=== PATIENT | male | born 1935 | race Caucasian/White ===

== ENCOUNTER 2016-11-06 11:38 | Emergency (ER) | payer MEDICARE, BC ==
[~2016-11-06 11:38] MED LIST: ASA5GR PO; ASABAYER PO; ATEN25 PO; CELEXA10 PO; CRESTOR20 MG PO; DIOV80 PO; DIOVAN40 MG PO; FISH OIL PO; FISH-EPA1000 MG PO; GARLIC PO; GARLIC TABLET PO; LUMIGAN OPH; LUMIGAN2.5 ML OPH; MULTIPLE VIT PO; MULTIVIT/MIN PO; NAMENDA10 MG PO; NAMENXR28 PO; OS500+D PO; PRILO PO; PRILOSEC40 MG PO; PROTONIX PO; SIN-CR PO; SYN075 PO; TIMOLOL MAL0.25 % OPH; VITAMIN C PO; VITC500 PO; ZANTAC 150 PO; ZANTAC 75 PO; [UNRECOGNIZED DRUG - REMARK] OPH
[2016-11-06 13:32] LABS: BASOPHILS 0.2 %; BASOPHILS ABSOLUTE 0.02 10/3/uL (0.0-0.16); EOSINOPHILS 0.6 %; EOSINOPHILS ABSOLUTE 0.05 10/3/uL (0.0-0.53); HEMATOCRIT 40.9 % (40.0-51.0); HEMOGLOBIN 13.7 g/dL (13.6-17.8); IMMATURE GRANULOCYTES 0.1 %; IMMATURE GRANULOCYTES ABSOLUTE 0.01 10/3/uL (0.0-0.11); LYMPHOCYTES 11.2 %; LYMPHOCYTES ABSOLUTE 0.91 10/3/uL (0.67-4.30); MEAN CORPUS HGB CONC 33.5 g/dL (32.0-36.0); MEAN CORPUSCULAR HEMOGLOB 32.7 pg (26.0-34.0); MEAN CORPUSCULAR VOLUME 97.6 fL (80-100); MEAN PLATELET VOLUME 10.6 fL (9.2-13.0); MONOCYTES 8.3 %; MONOCYTES ABSOLUTE 0.67 10/3/uL (0.21-1.20); NEUTROPHILS 79.6 %; NEUTROPHILS ABSOLUTE 6.46 10/3/uL (2.02-8.40); PLATELET COUNT 216 10/3/uL (150-400); RBC DISTRIBUTION WIDTH 13.1 % (12.0-16.0); RED CELL COUNT 4.19 10/6/uL (4.7-6.1); WHITE BLOOD CELLS 8.1 10/3/uL (4.5-10.5)
[2016-11-06 13:33] LABS: ER CBC TAT 0 Hrs 00 Mins; MANUAL DIFF NO %
[2016-11-06 13:41] LABS: BUN (BLOOD UREA NITROGEN) 13 MG/DL (6-23); CALCIUM, SERUM 8.8 MG/DL (8.5-10.4); CHLORIDE, SERUM 108 MMOL/L (96-112); CO2 (CARBON DIOXIDE) 30 MMOL/L (24-34); CREATININE 1.09 MG/DL (0.70-1.30); GFR AFRICAN AMERICAN 74 ML/MIN (>=60); GFR NON AFRICAN AMERICAN 64 ML/MIN (>=60); POTASSIUM, SERUM 4.5 MMOL/L (3.5-5.3); SODIUM, SERUM 144 MMOL/L (135-148)
[2016-11-06 13:43] LABS: GLUCOSE, SERUM 97 MG/DL (60-99)
== END 2016-11-06 14:18 | disposition home or self-care (01) ==
LOC: ER 11:38
PROVIDERS: Nurse Practitioner
DX: R07.81 Pleurodynia (principal); G20 Parkinson's disease; K21.9 Gastro-esophageal reflux disease without esophagitis; Z95.1 Presence of aortocoronary bypass graft; W19.XXXA Unspecified fall, initial encounter; Z79.82 Long term (current) use of aspirin
CPT/HCPCS: 71101; 80048; 85025; 93005; 99284; A9270-GY